=== PATIENT | male | born 1975 | race Caucasian/White ===

== ENCOUNTER 2016-10-12 10:38 | Inpatient (IN) ==
[2016-10-12] MEDS ORDERED: ASPIRIN PO STA (11:05)
[2016-10-12 11:46] LABS: ALLEN TEST YES; BE 13.4 mmoll (-3.0-3.0); BLOOD TYPE ARTERIAL; DRAW SITE L RADIAL; METHB 0.8 % (0.0-1.5); O2(CT) 12.7 mL/dL (15.0-23.0); PO2(98.6) 63 mmHg (60-100); SAMPLE BLOOD; SAO2 98.4 % (95.0-100.0); THB 9.6 g/dL (11.5-17.4); pH(98.6) 7.44 (7.35-7.45)
[2016-10-12 11:49] LABS: MODALITY CANNULA; PCO2(98.6) 58 mmHg (35-45)
[2016-10-12] MEDS ORDERED: DUONEB (A & A) INH ONE (12:02)
--- NOTE | 2016-10-12 12:09 | PROVIDER DOCUMENTATION ---
This chart was entered by Heather Benavides Scribe, acting as scribe for Shaye Nunez PA. HPI-Respiratory General <Omi Rodrigues - Last Filed: 10/14/16 18:44> - General Source: patient - History of Present Illness-Resp Quality of Pain: reports: tightness Severity in ED: reports: mild Onset/Duration: reports: 2 days ago Timing: reports: still present, intermittent Exposure: reports: unknown cause Cough Quality/Degree: reports: no cough Current Respiratory Medication Therapy: Initiated see nurses note Modifying Factors: improves with: nothing Associated Symptoms: reports: shortness of breath, sweaty. denies: chest pain/ soreness, cough, dizziness, earache, facial pain, fever/chills, flu-like symptoms, headache, heart racing, hurts to breathe, hyperventilating, lightheadedness, muscle/bodyaches, nasal congestion, nasal drainage, sinus pain , short of breath, sore throat, wheezing Similar Symptoms Previously?: Yes Recently seen or treated by another doctor?: No <Shaye Nunez - Last Filed: 10/14/16 19:30> - General Chief Complaint: Shortness of Breath Stated Complaint: sob Time Seen by Provider: 10/12/16 11:03 Allergies/Adverse Reactions: Patient Allergies Allergy/AdvReac Type Severity Reaction Status Date / Time fluconazole [From Diflucan] Allergy Severe ANAPHYLAXIS Verified 10/12/16 11:06 iodine Allergy Intermediate HIVES Verified 10/12/16 11:06 Penicillins Allergy Intermediate itchy Verified 10/12/16 11:06 Sulfa (Sulfonamide Allergy Unknown Unknown Verified 10/12/16 11:06 Antibiotics) ondansetron HCl * Allergy Unknown Verified 10/12/16 11:06 [From Zofran (as hydrochloride)] latex AdvReac Intermediate RASH Verified 10/12/16 11:06 Home Medications: Home Medication List Medication Instructions Recorded Confirmed Last Taken Type Alprazolam [Xanax] 1 mg PO BID 03/19/13 10/12/16 10/12/16 History Citalopram [Celexa] 40 mg PO QAM 03/19/13 10/12/16 10/12/16 History Oxycodone I.r. [Oxy Ir] 30 mg PO 4XDAY #0 tablet 04/04/15 10/12/16 10/12/16 Rx Furosemide [Lasix] 20 mg PO QAM 07/12/15 10/12/16 10/12/16 History Omeprazole 40 mg PO QAM 07/12/15 10/12/16 10/12/16 History - History of Present Illness-Resp Nature of Presenting Problem: Pt is 41 y/o M presents to the ED via EMS with SOB. Pt states SOB has been present for 2 to 3 days. Pt states wearing 2L of home O2. Pt denies cough. Pt states hx of Lupus, PE and GI bleeds. EMS states finding PT with 7L of home O2 on 06/24/15 was admitted for a loculated effusion and chest tube was placed on 07/13/16 admitted for loculated hydropneumonia, had chest tube subsequently placed again on that right side. Found to have an empyema of strep gordonii. In the discharge summary there was a recommended decortication throrocosopy byt CT surgeon on outpatient basis. Patient had this completed 1 year ago at [facility] (Heather Benavides) Pt is 41 y/o M presents to the ED via EMS with SOB. Pt states SOB has been present for 2 to 3 days. Pt states wearing 2L of home O2. Pt denies cough. Pt states hx of Lupus, PE and GI bleeds. EMS states finding PT with 7L of home O2 on 06/24/15 was admitted for a loculated effusion and chest tube was placed on 07/13/16 admitted for loculated hydropneumonia, had chest tube subsequently placed again on that right side. Found to have an empyema of strep gordonii. In the discharge summary there was a recommended decortication throrocosopy byt CT surgeon on outpatient basis. Patient had this completed 1 year ago at [facility] ( Shaye Nunez) Review of Systems - Adult - REVIEW OF SYSTEMS - ADULT Constitutional: reports: no symptoms reported Eyes: reports: no symptoms reported Ears, Nose, Mouth & Throat: reports: no symptoms reported Cardiovascular: reports: no symptoms reported Respiratory: reports: no symptoms reported Gastrointestinal: reports: no symptoms reported Genitourinary: reports: no symptoms reported Musculoskeletal: reports: no symptoms reported Integumentary: reports: no symptoms reported Neurological: reports: no symptoms reported Psychiatric: reports: no symptoms reported Endocrine: reports: no symptoms reported Hematologic/Lymphatic: reports: no symptoms reported Allergic/Immunologic: reports: no symptoms reported All Other Systems: Reviewed and Negative <Omi Rodrigues - Last Filed: 10/14/16 18:44> - REVIEW OF SYSTEMS - ADULT Constitutional: reports: no symptoms reported Eyes: reports: no symptoms reported Ears, Nose, Mouth & Throat: reports: no symptoms reported Cardiovascular: reports: no symptoms reported Respiratory: reports: shortness of breath. denies: cough, wheezing Gastrointestinal: reports: no symptoms reported Genitourinary: reports: no symptoms reported Musculoskeletal: reports: no symptoms reported Integumentary: reports: no symptoms reported Neurological: reports: no symptoms reported Psychiatric: reports: no symptoms reported Endocrine: reports: no symptoms reported Hematologic/Lymphatic: reports: no symptoms reported Allergic/Immunologic: reports: no symptoms reported All Other Systems: Reviewed and Negative <Shaye Nunez - Last Filed: 10/14/16 19:30> Past History - Adult - PAST MEDICAL HISTORY-ADULT Review of Records: reports: Nursing Assessment Review, Medications Reviewed <Omi Rodrigues - Last Filed: 10/14/16 18:44> - PAST MEDICAL HISTORY-ADULT Review of Records: reports: Old Records Reviewed, Nursing Assessment Review, Medications Reviewed Major Childhood Illnesses: reports: denies history Cardiovascular: reports: CHF Respiratory: reports: COPD Gastrointestinal: reports: denies history Obstetrical/Gynecological: reports: denies history Genitourinary: reports: denies history Musculoskeletal: reports: denies history Neurological: reports: denies history Psychiatric: reports: anxiety, depression Endocrine/Immune: reports: lupus Other Conditions: reports: denies history - PRIOR SURGERIES/PROCEDURES Surgical/Procedure History: reports: appendectomy, hernia repair - IMMUNIZATION STATUS Childhood Immunizations: See Nurse Assessment Flu Vaccine: See Nurse Assessment - FAMILY HISTORY Family History: reviewed, not pertinent - SOCIAL HISTORY Smoking: denies Substance Use: denies Living Situation: family <Shaye Nunez - Last Filed: 10/14/16 19:30> Physical Exam-General - PHYSICAL EXAM-ADULT Initial Vital Signs Reviewed: Yes - CONSTITUTIONAL General Appearance: appears well, alert, mild distress - EYES Eyes: PERRL/EOMI, pink conjunctivae - HEAD, EARS, NOSE, MOUTH & THROAT HENMT: normocephalic/atraumatic, moist mucous membranes, normal ENT inspection - NECK Neck: supple, normal inspection - RESPIRATORY Respiratory: chest non-tender, lungs clear, normal breath sounds, respiratory distress (mild) - CARDIOVASCULAR Cardiovascular: normal peripheral pulses, regular rate, rhythm - GASTROINTESTINAL (ABDOMEN) Abdominal Exam: normal bowel sounds, non tender, soft - LYMPHATIC Lymphatic: no adenopathy - MUSCULOSKELETAL Back Exam: normal inspection, no CVA tenderness, no vertebral tenderness Extremity: normal range of motion, non-tender - SKIN Integumentary: normal color, normal turgor, warm/dry - NEUROLOGIC Neurologic: grossly normal - PSYCHIATRIC Psych/Mental Status: normal mood/affect, oriented x 3 <Shaye Nunez - Last Filed: 10/14/16 19:30> Progress - PLAN OF CARE/RESULTS Result Diagrams: 10/14/16 04:20 10/14/16 04:20 <Omi Rodrigues - Last Filed: 10/14/16 18:44> - PLAN OF CARE/RESULTS Result Diagrams: 10/14/16 04:20 10/14/16 04:20 - REASSESSMENT Reassessment #1 Time Reassessed: 13:42 (sob has improved. Dr. Rodrigues to bedside. agrees with treatment plan) Status: improving - XRAY 1 XRAY: Bilateral XRAY Study: Chest Impression: Abnormal (mild cardiomegaly with tiny effusions per Dr. Jordan) - CONSULTS/PCP/HOSPITALIST Notification #1 *Consult/PCP/Hospitalist*: Hospitalist Time Discussed: 15:28 Reason/Comments: Dr. Rodrigues consults with the hospitalist about admit of PT - CHANGE OF SHIFT REPORT (ED Provider) Report Given and Care Transferred to:: Dr. Rodrigues Time of Transfer: 14:23 Items Pending: CT/MRI Results <Shaye Nunez - Last Filed: 10/14/16 19:30> - PLAN OF CARE/RESULTS Progress/Plan/Lab Results: Orders Category Date Time Status Admit Patient To Inpatient Status Routine AdmDCTranf 10/12/16 18:43 Ordered Cardiac Monitoring DIRECTED Care 10/12/16 11:05 Completed Intake and Output As Ordered Q 8-HR ASSESS Care 10/12/16 15:48 Active Nursing- MD Consult Request ROUTINE Care 10/12/16 18:38 Completed Oxygen Therapy- ED Nursing DIRECTED Care 10/12/16 11:05 Completed Saline Loc NOW Care 10/12/16 11:05 Completed Vital Signs Order Q 4-HR ASSESS Care 10/12/16 15:48 Completed Vital Signs Order Q 4-HR ASSESS Care 10/12/16 18:44 Completed MD [Physician/Provider Consults] Routine Cons 10/12/16 18:37 Ordered Physician/Provider Consults Stat Cons 10/12/16 18:08 Ordered ANGIOGRAM/PULMONARY ARTERIES [CT] Routine Exams 10/12/16 18:40 Completed CHEST-2 VIEWS [RAD] Stat Exams 10/12/16 11:05 Completed CHEST-PORTABLE [RAD] Routine Exams 10/13/16 06:00 Completed lateral [LAT. DECUBITUS VIEW-LEFT] [RAD] Stat Exams 10/12/16 13:10 Completed ABG [RESP] Routine Lab 10/12/16 11:35 Completed ABG [RESP] Routine Lab 10/12/16 18:16 Completed ABG [RESP] Routine Lab 10/13/16 04:25 Completed BASIC METABOLIC PANEL [CHEM] DAILY Lab 10/13/16 04:00 Completed BASIC METABOLIC PANEL [CHEM] DAILY Lab 10/14/16 04:20 Completed BASIC METABOLIC PANEL [CHEM] DAILY Lab 10/15/16 06:00 Ordered BLOOD CULTURE [BLDCUL] Routine Lab 10/12/16 21:43 Results CBC WITH DIFF [HEME] DAILY Lab 10/13/16 04:00 Completed CBC WITH DIFF [HEME] DAILY Lab 10/14/16 04:20 Completed CBC WITH ELECTRONIC DIFF [HEME] Stat Lab 10/12/16 12:06 Completed CK PROFILE [SP CHEM] Stat Lab 10/12/16 12:06 Completed COMPREHENSIVE METABOLIC PANEL [CHEM] Stat Lab 10/12/16 12:06 Completed D-DIMER [CHEM] Stat Lab 10/12/16 12:06 Completed FERRITIN Routine Lab 10/12/16 15:00 Completed FREE T4 Routine Lab 10/12/16 15:00 Completed INFLUENZA SCREEN A/B Stat Lab 10/12/16 18:41 Completed MAGNESIUM [CHEM] Stat Lab 10/12/16 12:06 Completed PRO B-NATRIURETIC PEPTIDE Stat Lab 10/12/16 12:06 Completed PROTIME WITH INR [COAG] Stat Lab 10/12/16 12:06 Completed PTT [COAG] Stat Lab 10/12/16 12:06 Completed RENAL PROFILE [CHEM] Stat Lab 10/12/16 12:06 Completed SPUTUM CULTURE WITH GRAM STAIN [RM] Routine Lab 10/12/16 18:49 Ordered TROPONIN T Stat Lab 10/12/16 12:06 Completed TSH Routine Lab 10/12/16 15:00 Completed UA NIMS W/REFLEX CULT [URINALYSIS] Stat Lab 10/12/16 12:50 Completed UIBC W TOTAL IRON [CHEM] Routine Lab 10/12/16 15:00 Completed VITAMIN B12 Routine Lab 10/12/16 12:06 Completed VITAMIN D 25 HYDROXY Routine Lab 10/12/16 12:06 Completed 0.9% Sodium Chloride Inj [Ns] 500 ml Med 10/12/16 16:18 Discontinued .ROUTE As Directed Albuterol 2.5MG/Ipratrop 0.5MG [Duoneb (A & A)] Med 10/12/16 12:02 Discontinued 3 ml INH NOW ONE Albuterol 2.5MG/Ipratrop 0.5MG [Duoneb (A & A)] Med 10/12/16 19:30 Active 3 ml INH RTQ4H Aspirin Med 10/12/16 11:05 Discontinued 325 mg PO STAT STA Enoxaparin 1 mg/kg [Lovenox 1 mg/kg] Med 10/12/16 18:17 Discontinued 1 each SUBQ NOW ONE Enoxaparin [Lovenox] Med 10/12/16 18:30 Discontinued 110 mg SUBQ NOW ONE Enoxaparin [Lovenox] Med 10/13/16 06:30 Discontinued 110 mg SUBQ Q12H Ergocalciferol (Vitamin D2) [Vitamin D] Med 10/13/16 09:00 Active 50,000 unit PO Q7D Hydrocodone/APAP 5 mg/325 mg [[place]-5] Med 10/12/16 14:13 Discontinued 1 each PO NOW ONE Hydromorphone [Dilaudid] Med 10/12/16 18:43 Discontinued 1 mg IM Q3H PRN PRN Levofloxacin [Levaquin] Med 10/12/16 18:49 Discontinued 750 mg PO NOW ONE Meperidine [Demerol] Med 10/12/16 18:07 Discontinued 25 mg IM NOW ONE Methylprednisolone Sod Succ [Solu-Medrol] Med 10/12/16 18:45 Active 60 mg IV Q8H Omeprazole [Prilosec] Med 10/13/16 07:00 Active 40 mg PO DAILY@0700 Aerosol Treatments Routine Oth 10/12/16 12:02 Completed Aerosol Treatments Routine Oth 10/12/16 15:40 Completed Aerosol Treatments Stat Oth 10/12/16 12:02 Completed Aerosol Treatments Stat Oth 10/12/16 15:40 Completed BIPAP Routine Oth 10/12/16 18:37 Active BIPAP Stat Oth 10/12/16 18:38 Active Pulse Oximetry Routine Oth 10/12/16 15:44 Completed EKG [EKG] Stat Ther 10/12/16 11:05 Completed Limited Echocardiogram Routine Ther 10/12/16 08:00 Completed Venous U/S Bilateral Legs Routine Ther 10/12/16 18:38 Draft Transfer/Admit Order [TRANSFER] Routine Transfer 10/12/16 18:40 Completed Discussed patient with Dr. Valle after ABGs. States we do not need BIPAP at this time (Heather Benavides) Discussed patient with Dr. Valle after ABGs. States we do not need BIPAP at this time (Shaye Nunez) - CHANGE OF SHIFT REPORT (ED Provider) Comment: stable, r/o PE (Heather Benavides) stable, r/o PE (Shaye Nunez) Departure - Departure Time of Disposition Decision: 22:00 Certified Medical Emergency: Emergent - Critical Care Note This patient required my direct & personal management of CC.: No <Omi Rodrigues - Last Filed: 10/14/16 18:44> - Departure Time of Disposition Decision: 22:00 Certified Medical Emergency: Emergent - Critical Care Note This patient required my direct & personal management of CC.: No <Shaye Nunez - Last Filed: 10/14/16 19:30> - Departure DIAGNOSIS: Respiratory failure with hypoxia Qualifiers: Chronicity: acute on chronic Qualified Code(s): J96.21 - Acute and chronic respiratory failure with hypoxia Disposition: ADMITTED INPATIENT 09 Condition: Stable Attestation - Physician/ PATY Attestation Patient care was provided by Advanced Practice Provider:: Yes Advanced Practice Provider:: Shaye Nunez Advanced Practice Provider documentation review:: The Mid-level provider documentation, treatment plan and medical decision making was reviewed by the physician who agrees with all treatment and medical decision making by the MLP. The physician spent face to face time with patient:: Yes Advanced Practice Provider documentation review:: The physician spent face to face time with this patient and agrees with all MLP documentation, treatment, and medical decision making by the MLP. See provider notes for further information. <Shaye Nunez - Last Filed: 10/14/16 19:30> This chart was documented by the indicated scribe, (Heather Benavides Scribe) and accurately reflects the services I performed and decisions made by vt, Shaye Nunez, PA, as attested by the provider's signature.
[2016-10-12 12:24] LABS: MANUAL DIFF NEEDED? NO
[2016-10-12 12:33] LABS: BASO% 0.2 % (0.0-0.8); EOS# 0.09 X1000 (0.0-0.7); EOS% 1.7 % (0.0-10.0); HEMATOCRIT 34.4 % (42.0-52.0); HEMOGLOBIN 10.1 g/dL (14.0-18.0); IMM GRAN# 0.02 X1000 (0.0-0.04); IMM GRAN% 0.4 % (0.0-0.5); LYMPH# 0.55 X1000 (1.2-3.4); LYMPH% 10.4 % (20.5-51.1); MCH 22.7 PG (27-31); MCHC 29.4 g/dL (33-37); MCV 77.5 FL (81-99); MONO# 0.39 X1000 (0.11-0.59); MONO% 7.3 % (1.7-9.3); MPV 8.6 FL (7.4-10.4); PLT 84 X1000 (130-400); RBC 4.44 XMIL (4.7-6.1)
[2016-10-12 12:39] LABS: INR 1.02; PROTIME 10.7 Seconds (9.2-11.7); PTT 25.6 Seconds (22.0-36.0)
[2016-10-12] MEDS ORDERED: LASIX IV ONE ×2 (12:45→20:45)
[2016-10-12 13:03] LABS: URINE CULTURE NEEDED? NO; URINE MICRO REVIEW NEEDED? NO; URINE SOURCE CLEAN CATCH
[2016-10-12 13:07] LABS: BILIRUBIN URINE NEGATIVE (NEGATIVE); BLOOD URINE NEGATIVE (NEGATIVE); COLOR STRAW; GLUCOSE URINE NEGATIVE (NEGATIVE); LEUKOCYTES URINE NEGATIVE (NEGATIVE); NITRITE URINE NEGATIVE (NEGATIVE); PROTEIN URINE NEGATIVE (NEGATIVE); SP GRAVITY URINE 1.005; TURBIDITY URINE CLEAR (CLEAR); UROBILINOGEN URINE NORMAL (NORMAL)
[2016-10-12 13:08] LABS: UR EPITHELIAL CELLS <10 /HPF (<10); URINE BACTERIA NEGATIVE /HPF; URINE RBC <10 /HPF (<10); URINE WBC <10 /HPF (<10)
[2016-10-12 13:13] LABS: AGAP 16; ALBUMIN 3.5 g/dL (3.5-5.0); ALKALINE PHOSPHATASE 124 U/L (32-122); BUN 10 mg/dL (8-22); CHLORIDE 92 mmol/L (98-107); CK PROFILE 35 U/L (24-204); COSMO 273; GOT 15 U/L (10-34); GPT 10 U/L (10-44); MAGNESIUM 2.2 mg/dL (1.5-2.7); POTASSIUM 4.7 mmol/L (3.5-5.1); SODIUM 137 mmol/L (136-145); TCO2 29 mmol/L (25-35); TOTAL BILIRUBIN 0.38 mg/dL (0.20-1.00); TOTAL PROTEIN 8.1 g/dL (6.3-8.3)
[2016-10-12] MEDS ORDERED: NORCO-5 PO ONE (14:13)
--- NOTE | 2016-10-12 15:15 | Diag Imaging Result Document ---
PROCEDURE NAME: CHEST-2 VIEWS - 10/12/2016 FRONTAL AND LATERAL CHEST, TWO VIEWS: COMPARISON: 07/26/2015. FINDINGS: Poor inspiratory effort. The right hemidiaphragm is elevated. The heart remains mildly enlarged. The vessels are not distended. There is atelectasis in the right base. Tiny pleural effusions blunt the posterior gutters. IMPRESSION: Poor inspiratory effort with mild cardiomegaly and tiny pleural effusions.
[2016-10-12] MEDS ORDERED: NS 500 ML ONE (16:18)
[2016-10-12 16:26] LABS: IRON SATURATION 4 %; TIBC 419 ug/dL; TOTAL IRON 17 ug/dL (53-167); UNBOUND IRON 402 ug/dL (112-346)
[2016-10-12 16:35] LABS: VITAMIN D 25 HYDROXY 17.4 NG/DL
--- NOTE | 2016-10-12 16:49 | Diag Imaging Result Document ---
PROCEDURE NAME: LAT. DECUBITUS VIEW-LEFT - 10/12/2016 LEFT LATERAL DECUBITUS CHEST: FINDINGS: There is dependent layering of a small amount of free pleural fluid on the left. IMPRESSION: Small left pleural effusion.
[2016-10-12 17:53] LABS: FREE T4 0.98 ng/dL (0.93-1.70)
[2016-10-12] MEDS ORDERED: DEMEROL IM ONE (18:07)
[2016-10-12] MEDS ORDERED: LOVENOX 1 MG/KG SUBQ ONE (18:17)
[2016-10-12 18:23] LABS: ALLEN TEST YES; BE 11.4 mmoll (-3.0-3.0); BLOOD TYPE ARTERIAL; DRAW SITE R RADIAL; METHB 1.5 % (0.0-1.5); PO2(98.6) 72 mmHg (60-100); SAMPLE BLOOD; SAO2 97.5 % (95.0-100.0); THB 10.6 g/dL (11.5-17.4); pH(98.6) 7.41 (7.35-7.45)
[2016-10-12 18:26] LABS: MODALITY CANNULA; PCO2(98.6) 60 mmHg (35-45)
[2016-10-12] MEDS ORDERED: LOVENOX SUBQ ONE (18:30)
[2016-10-12] MEDS ORDERED: DILAUDID IM PRN (18:43)
[2016-10-12] MEDS ORDERED: LEVAQUIN PO ONE (18:49)
[2016-10-12] MEDS: DUONEB (A & A) INH SCH ×2 (19:39→22:55)
[2016-10-12 19:46] LABS: AGAP 21; ALBUMIN 3.9 g/dL (3.5-5.0); BUN 10 mg/dL (8-22); CHLORIDE 89 mmol/L (98-107); COSMO 271; POTASSIUM 4.8 mmol/L (3.5-5.1); SODIUM 136 mmol/L (136-145); TCO2 26 mmol/L (25-35)
[2016-10-12] MEDS: SOLU-MEDROL IV SCH (20:37)
[2016-10-12] MEDS ORDERED: BENADRYL IV ONE (20:51)
[2016-10-12] MEDS ORDERED: TYLENOL PO ONE (20:52)
[2016-10-12] MEDS: MERREM 1 GM in NS 50 ML IV SCH (21:25)
--- NOTE | 2016-10-12 22:40 | HISTORY AND PHYSICAL ---
PRIMARY CARE PHYSICIAN: None. CHIEF COMPLAINT: Increasing shortness of breath over the last 3 days. HISTORY OF PRESENT ILLNESS: Mr. Lee is a 41-year-old male with a complicated past medical and surgical history, including mesenteric venous thrombosis, lupus, chronic pain syndrome, ITP, protein S deficiency and a history of right upper and right lower extremity DVT who presented to the ER via EMS in respiratory distress. The patient reports that over the last 3 days he has been having increasing shortness of breath and pleuritic chest pain. In the past, the patient has been treated with Coumadin due to his multiple episodes of thrombosis. However, he was taken off of the Coumadin due to a history of GI bleed. As recently as last year, he was told to start Eliquis. However, the patient did not get the prescription filled because he was afraid of having another GI bleed. One year ago, the patient had a decortication of a right empyema done at [facility]. The patient reports that he is normally on 2 L of supplemental oxygen at home. He also has obstructive sleep apnea. In the ER, the patient was noted to be complaining of 10/10 pleuritic chest pain and was unable to maintain oxygen saturations on nasal cannula. So the patient was placed on BiPAP. The patient is a very difficulty stick for IV access, so a General Surgery consultation was placed for central line placement. An attempt to place a PICC line was tried; however, it was unsuccessful. The patient's D-dimer was noted to be elevated at 2.35. Due to the patient's extensive history of thrombosis, pulmonary embolism was high on the differential list. As a result, the patient was given a dose of full-dose Lovenox while in the ER, and a CT angiogram of the pulmonary arteries was ordered as well as bilateral lower extremity venous Doppler. The patient will be admitted to the medical ICU for further treatment and evaluation. PAST MEDICAL HISTORY: 1. Mesenteric venous thrombosis. 2. GERD. 3. Trevino's esophagus. 4. Lupus. 5. Depression. 6. Gastritis. 7. History of GI bleed. 8. Chronic pain syndrome. 9. Anxiety disorder. 10. Gout. 11. Metabolic syndrome. 12. Morbid obesity. 13. ITP. 14. History of empyema status post decortication 1 year ago at [facility]. 15. Empyema 16. Obstructive sleep apnea. 17. History of right lower extremity DVT. 18. Ischemic colitis. PAST SURGICAL HISTORY: 1. Decortication of a right-sided empyema at [facility] 1 year ago. 2. Exploratory laparotomy with lysis of adhesions performed in 2012. 3. Bowel resection. 4. Chest tube thoracostomy in June 2015. 5. EGD. FAMILY HISTORY: Positive for coronary artery disease, diabetes, and hypertension. SOCIAL HISTORY: The patient lives at home. He denies any tobacco, alcohol or illicit drug use. ALLERGIES: 1. Fluconazole. 2. Iodine. 3. Penicillin. 4. Sulfa drugs. 5. Latex. 6. Zofran. HOME MEDICATIONS: 1. Oxycodone IR 30 mg p.o. 4 times a day. 2. Omeprazole 40 mg p.o. every morning. 3. Lasix 20 mg p.o. every morning. 4. Celexa 40 mg p.o. every morning. 5. Xanax 1 mg p.o. twice a day. REVIEW OF SYSTEMS: All other review of systems are negative. Please refer to the history of present illness for pertinent positives and negatives. PHYSICAL EXAMINATION: VITAL SIGNS: Temperature 98.4 degrees, blood pressure 155/91, heart rate 88, respirations 18, O2 saturations 99% on BiPAP. GENERAL: This is a morbidly obese male, in mild distress. HEAD: Normocephalic, atraumatic. NECK: Supple. No JVD. No lymphadenopathy. No carotid bruits. EYES: Conjunctivae clear, EOMI, PERRLA. HEART: S1, S2 normal. Regular rate and rhythm. No murmurs, rubs, or gallops. LUNGS: Mild expiratory wheezes bilaterally. No crackles. No rales. Equal air entry bilaterally. ABDOMEN: Positive bowel sounds. Soft, obese, nontender, nondistended. EXTREMITIES: No edema. No cyanosis. No calf tenderness. NEUROLOGIC: The patient is alert and oriented x3. No focal neurologic deficits noted. LABORATORY: White blood cell count 5.3, hemoglobin 10, hematocrit 34, platelets 84,000. D-dimer 2.3. INR 1. ABG: PH of 7.41, pCO2 60, PO2 72, bicarb 33. O2 saturation 97%. Sodium 136, potassium 4.8, chloride 89, CO2 26, BUN 10, creatinine 1.2, glucose 103. Iron 17, TIBC 419. UA negative. Vitamin D level 17.4. TSH 0.9, free T4 0.9, albumin 3.9. ProBNP 440. IMAGING: Portable chest x-ray reveals mild cardiomegaly and tiny pleural effusions. ASSESSMENT AND PLAN: 1. Acute on chronic hypoxemic respiratory failure. Given the patient's history of multiple episodes of thrombosis, pulmonary embolism is high on the differential. We will go ahead and treat the patient with full dose Lovenox and order a CT angiogram of the pulmonary arteries as well as a venous Doppler of the lower extremities. We will also continue with BiPAP support and consult Pulmonary. Bronchodilator therapy and antibiotics have been initiated. 2. Left pleural effusion. Will monitor closely. May require a thoracentesis. 3. History of idiopathic thrombocytopenia. The patient's platelet count is 84, 000 today. His platelets have been as low as 68,000. Will consult for further recommendations. 4. Situational depression. Continue on Celexa. 5. Obstructive sleep apnea. Aware. 6. Gastroesophageal reflux disease. We will start the patient on IV Protonix. 7. Morbid obesity. Aware 8. Chronic pain syndrome. prn pain medications have been started. 9. The plan of care was discussed with the patient and his mother at the bedside. cc: Zenaida Davey MD MTDD
--- NOTE | 2016-10-12 22:44 | OPERATIVE NOTE ---
PROCEDURE DATE: 10/12/2016 PROCEDURE PERFORMED: Left internal jugular vein central venous line placement, with ultrasound guidance. SURGEON: Dr. Alexander. PREOPERATIVE DIAGNOSIS: Acute respiratory failure. POSTOPERATIVE DIAGNOSIS: Acute respiratory failure. DESCRIPTION OF PROCEDURE: The patient was placed in Trendelenburg position. The left upper anterior chest and neck were prepped and draped in a sterile fashion. We used an ultrasound to identify the internal jugular vein. It was easily compressible. We anesthetized the skin, made a small stab incision, accessed the vein under ultrasound guidance. We then passed the guidewire without difficulty. We dilated the tract and passed the triple-lumen catheter to the extent that it would go. Blood came back in each lumen spontaneously. We then flushed each lumen with saline, secured the flange to the skin with silk contained within the [place]. Biostep patch was placed at the exit site, and a sterile OpSite was applied. A chest x-ray was ordered. He tolerated it well. cc: Omi Alexander MD
[2016-10-12] MEDS: DILAUDID IV PRN (22:58)
[2016-10-13] MEDS: DILAUDID IV PRN ×6 (03:25→23:29)
[2016-10-13] MEDS: DUONEB (A & A) INH SCH ×6 (03:25→22:57)
[2016-10-13] MEDS: SOLU-MEDROL IV SCH ×3 (03:30→17:51)
[2016-10-13] MEDS: MERREM 1 GM in NS 50 ML IV SCH ×3 (03:34→19:56)
[2016-10-13 04:41] LABS: ALLEN TEST YES; BE 10.3 mmoll (-3.0-3.0); BLOOD TYPE ARTERIAL; DRAW SITE R RADIAL; METHB 1.5 % (0.0-1.5); O2(CT) 14.8 mL/dL (15.0-23.0); PCO2(98.6) 32 mmHg (35-45); PO2(98.6) 185 mmHg (60-100); SAMPLE BLOOD; SAO2 100.1 % (95.0-100.0); THB 10.6 g/dL (11.5-17.4)
[2016-10-13 04:42] LABS: MODALITY BI PAP; pH(98.6) 7.61 (7.35-7.45)
--- NOTE | 2016-10-13 05:31 | EKG Report ---
Test Performed on : 10/12/2016 11:14:54 PM Test Reason : Chest Pain Blood Pressure : / mmHG Vent. Rate : 084 BPM Atrial Rate : 084 BPM P-R Int : 142 ms QRS Dur : 082 ms QT Int : 384 ms P-R-T Axes : 022 037 026 degrees QTc Int : 453 ms Normal sinus rhythm. Normal ECG When compared with ECG of 12-OCT-2016 23:14, (Unconfirmed) No significant change was found Confirmed by Romeo Hutchinson MD ([id number]) on 10/13/2016 7:33:14 AM
[2016-10-13 05:49] LABS: HEMOGLOBIN 10.3 g/dL (14.0-18.0); LYMPH# 0.32 X1000 (1.2-3.4); MANUAL DIFF NEEDED? YES; MCH 23.2 PG (27-31); MCHC 30.3 g/dL (33-37); MCV 76.6 FL (81-99); MONO% 1.6 % (1.7-9.3); NEUT% 93.4 % (42.2-75.2); PLT 79 X1000 (130-400); RBC 4.44 XMIL (4.7-6.1)
[2016-10-13 05:57] LABS: AGAP 15; BUN 13 mg/dL (8-22); CALCIUM 8.8 mg/dL (8.8-10.2); CHLORIDE 94 mmol/L (98-107); COSMO 281; IRON SATURATION 5 %; POTASSIUM 4.1 mmol/L (3.5-5.1); SODIUM 139 mmol/L (136-145); TCO2 30 mmol/L (25-35); TIBC 354 ug/dL; TOTAL IRON 17 ug/dL (53-167); UNBOUND IRON 337 ug/dL (112-346)
[2016-10-13] MEDS: LOVENOX SUBQ SCH ×2 (06:03→17:51)
[2016-10-13] MEDS: PRILOSEC PO SCH (06:04)
[2016-10-13 06:07] LABS: FERRITIN 50 ng/mL (30-400)
[2016-10-13 06:38] LABS: LYMPHS 6 % (21-51); MONO 2 % (1-9)
--- NOTE | 2016-10-13 07:30 | Diag Imaging Result Document ---
PROCEDURE NAME: CHEST-PORTABLE - 10/13/2016 PORTABLE CHEST: COMPARISON: Compared to 10/12/2016. FINDINGS: Poor inspiratory effort. No change in the left jugular line. The heart remains prominent. Vascular distention is more pronounced on the current exam. I believe there is a small left effusion. There could be underlying infiltrate in the left base as well. IMPRESSION: Worsening pulmonary edema.
[2016-10-13] MEDS ORDERED: LASIX IV ONE (07:37)
--- NOTE | 2016-10-13 08:12 | Diag Imaging Result Document ---
PROCEDURE NAME: CHEST-PORTABLE - 10/12/2016 PORTABLE CHEST: COMPARISON: Compared to 10/12/2016. FINDINGS: Poor inspiratory effort. Interval placement of a left jugular line. The tip overlies the distal superior vena cava. No pneumothorax. Heart remains mildly prominent. I believe there are small effusions. IMPRESSION: No postprocedural pneumothorax following placement of a left jugular line.
--- NOTE | 2016-10-13 08:17 | Diag Imaging Result Document ---
PROCEDURE NAME: ANGIOGRAM/PULMONARY ARTERIES - 10/12/2016 CT ANGIOGRAM OF PULMONARY ARTERIES WITH CONTRAST: Exam performed with intravenous contrast. A dose-reduction protocol was used. Axial and coronal images are obtained. COMPARISON: Compared with 06/24/2015. FINDINGS: There are no filling defects identified in the pulmonary arteries. Inspiration is somewhat shallow. There is a moderate left pleural effusion. There is associated compressive atelectasis at the posterior left lower lobe and posterior left upper lobe. There is atelectasis at the right base associated with elevation of the right hemidiaphragm. There is no pneumothorax identified. The trachea is narrowed in the AP dimension similar to the previous exam. There is no specific etiology for this apparent. There are some mildly enlarged mediastinal lymph nodes and right supraclavicular lymph nodes which appear grossly stable. There is no indication of aortic dissection. Included sections of upper abdomen show splenomegaly similar to the previous exam, although the entire spleen is not included on the exam. There is possibly mild fatty infiltration of the liver. IMPRESSION: 1. No evidence of pulmonary embolism. 2. Moderate left pleural effusion with associated compressive atelectasis of posterior left lower left upper lobes. 3. Atelectasis at right base associated with elevation of right hemidiaphragm. 4. Narrowing of trachea in the AP dimension similar to the previous exam. Mild mediastinal and supraclavicular adenopathy similar to the previous exam. 5. Splenomegaly. A [facility] physician provided preliminary results at 11:08 p.m. on 10/12/2016.
--- NOTE | 2016-10-13 08:55 | ECHO REPORT ---
ORDER DATE: 10/12/2016 FINDINGS: 1. Technically suboptimal study. Very poor acoustic window. Measurements could not be accurately obtained. 2. Aortic valve leaflets not well visualized. Pulmonic valve not well visualized. 3. Mitral valve was normal. 4. Normal left ventricular cavity size. Endocardium not well visualized in all views. Preserved left ventricular systolic function. Estimated ejection fraction of 60%. 5. Peak velocity across the aortic valve less than 2 m/sec by Doppler studies. There is no aortic stenosis or regurgitation. Cannot comment on Dopplers across the other valves because of technically suboptimal study. There is no pericardial effusion or obvious intracardiac mass or thrombus seen. cc: MD Zenaida Clements MD
[2016-10-13] MEDS ORDERED: VITAMIN D PO SCH (09:00)
[2016-10-13] MEDS: LASIX IV SCH ×2 (10:17→17:50)
--- NOTE | 2016-10-13 11:46 | CONSULTATION ---
DATE OF CONSULTATION: 10/13/2016 REQUESTING PHYSICIAN: Dr. Davey. REASON FOR CONSULTATION: Respiratory failure. HISTORY OF PRESENT ILLNESS: Mr. Lee is a 41-year-old, white male with a history of ITP, mesenteric venous thrombosis, with a prior admission to this hospital in June of 2015 with an empyema and subsequent decortication, who was brought to the emergency room with a 3-4 day history of fevers with subsequent onset of pleuritic pain. The patient presented to the emergency room, had small to moderate left-sided pleural effusion. No evidence of pulmonary emboli was identified. The patient's course is complicated and he carries multiple non-substantiated diagnoses. The patient does have chronic pain syndrome and he reports prior back fractures without back surgery. He does have known ITP with subsequent clotting abnormality and has been followed by Dr. Ennis and Dr. Ann in the past. He carries a diagnosis of protein S deficiency which has been repeated in the chart but has had normal protein C and S levels in this hospital. The patient also carries a diagnosis of antiphospholipid syndrome and had 1 positive test for this disease process but the 2 most recent were negative. The patient also carries a diagnosis of lupus but no formal evaluation is available for review. Patient's ALEE has been negative. The patient reports that he does not have a regular physician. He was last seen by a physician in [place] (Annita ). He reports he received pain medicine from this physician and he continues to use that prescription. PAST MEDICAL HISTORY/PROBLEM LIST: 1. ITP. 2. History of mesenteric vein thrombosis requiring surgery. Postoperatively, he had a clot in his arm and leg. 3. History of GI bleeding. 4. Chronic pain syndrome, on OxyContin. 5. Depression/anxiety disorder. 6. Questionable diagnosis of lupus. 7. Morbid obesity. 8. Status post empyema with decortication. 9. Questionable diagnosis of sleep apnea. This has been repeated in the chart several times but he denies formal evaluation, but is on intermittent oxygen at night. SOCIAL HISTORY: He is a nonsmoker. FAMILY HISTORY: Noncontributory to current presentation. REVIEW OF SYSTEMS: As noted in the HPI. PHYSICAL EXAMINATION: General: Reveals an obese, white male resting comfortably and in no distress. Vital Signs: Blood pressure 138/71, heart rate 83, respiration rate 21, oxygen saturation 96% on 50% face mask. HEENT: Pupils are equal and reactive. Oropharynx is clear. Neck: Supple. Chest: Reveals decreased breath sounds at the left base. Cardiac Examination: Regular rate. Normal S1, normal S2. Abdomen: Obese and soft. Extremities: Reveal trace edema. LABORATORIES: CT scan reveals no evidence of pulmonary emboli, moderate left-sided pleural effusion with compressive atelectasis, tracheomalacia, splenomegaly. White blood count 6.45, hemoglobin 10.3, platelet count 79,000. Chemistry: Sodium 139, potassium 4.1, chloride 94, BUN 13, creatinine 1. Blood cultures are negative to date. He has been afebrile during this hospitalization. IMPRESSION: Complicated, 41-year-old, white male. The patient does have a known and documented history of idiopathic thrombocytopenic purpura which would explain his clotting disorder and prior difficulties with mesenteric vein thrombosis and subsequent postoperative deep vein thrombosis. The patient reports he had a gastrointestinal bleed and stopped his blood thinner several months ago. The patient has a diagnosis of lupus which has not been confirmed and no formal rheumatologic evaluation is available. Patient carries a diagnosis of sleep apnea but does not remember formal sleep apnea evaluation. The patient intermittently has protein S deficiency listed in chart but this has been documented as negative with normal values in this hospital laboratory. The patient intermittently has the diagnosis of lupus anticoagulant listed but with 2 recent negative evaluations. The patient has chronic pain syndrome and reports he received his pain medications from a physician in [place]. He has not seen a physician in 8 months. It seems unlikely that he would have a prescription for pain medicine which lasted this duration. Patient needs to find a physician and establish a relationship or his long-term prognosis will be guarded. The patient has recent fevers but remains afebrile during this hospital stay. He has a small pleural effusion which will need to be followed and may require thoracentesis. RECOMMENDATIONS: 1. Agree with antibiotic regimen as you are doing. 2. Consider thoracentesis if he develops fevers, leukocytosis, or progression of pleural effusion. 3. Oxygen as needed to maintain saturation greater than 90%. 4. Agree with evaluation by Dr. Ann as you are doing. 5. Consider formal evaluation with Dr. Sánchez. 6. Anticoagulation and weight loss were recommended to the patient. 7. Consider formal sleep apnea evaluation as an outpatient if he has not had this performed. cc: James Poe MD
[2016-10-13] MEDS: CELEXA PO SCH (14:16)
[2016-10-13] MEDS: XANAX PO SCH ×2 (14:17→21:20)
--- NOTE | 2016-10-13 17:12 | CONSULTATION ---
DATE OF CONSULTATION: 10/13/2016 HEMATOLOGY/ONCOLOGY CONSULT: REASON FOR CONSULT: This patient has thrombocytopenia and a prior history of clots. HISTORY OF PRESENT ILLNESS: This is a patient whom we have seen in the hospital previously for history of clots. He most recently has been seen in [place] in 2015, by Dr. Salgado, accounts payable bookkeeper. He was seen at [place] for, per the patient, multiple DVTs which we do not have any ultrasound records of. [facility] did show a postop DVT at 1 point, which he was treated for and their notes state that he has an IVC filter in place. He did have a mesenteric clot, it is questionable venous versus arterial. He has had hypercoagulable workup at [facility] per Dr. Salgado, which was negative. We have performed this work up here and it is also negative. Patient has known chronic thrombocytopenia, splenomegaly and suspected ITP. His platelets have apparently been stable. He has not been on any anticoagulant for approximately a year. He states that he was on Xarelto previously and he had a GI bleed while he was on it so he stopped it. He is very noncompliant. He states that over the last day he began having increasing dyspnea with some chest pain. He has some home oxygen that he uses on a p.r.n. basis that he used, it was 7 L nasal cannula, and he still had no improvement with his dyspnea so he came to the ER. A CTA of the chest was performed, which is negative for pulmonary embolism. It did show moderate left pleural effusion with associated compressive atelectasis of the posterior left lower and upper lobes, atelectasis at right base, splenomegaly, narrowing of the trachea in the AP dimension that has not been changed. His platelet count is 79,000, hemoglobin 10.3, WBC 6.45. He denies any clinical bleeding, any swelling in his extremities, new lumps, bumps, or bone pain. He denies any DVT in the past year. ALLERGIES: Sulfa drugs, latex, penicillin, fluconazole, and Zofran. PAST MEDICAL/SURGICAL HISTORY: 1. Mesenteric venous versus arterial thrombosis. 2. Antiphospholipid antibody syndrome. 3. Ischemic colitis status post resection. 4. GI bleed. 5. Chronic pain. 6. Anxiety. 7. Prior empyema. 8. A postop lower extremity DVT. FAMILY/SOCIAL HISTORY: Patient denies alcohol, illicit drug or tobacco use. HOME MEDICATIONS: Oxycodone, omeprazole, Lasix, Celexa, and Xanax. PHYSICAL EXAMINATION: Vital Signs: Stable. HEENT: Head is normocephalic, atraumatic. Pupils equal, round, symmetric. Cardiovascular: S1, S2 audible to auscultation with no heaves, lifts, thrills. Pulmonary: The patient is on a BiPAP. Respirations are unlabored with diminished in bilateral bases. Abdomen: Positive bowel sounds. Soft, nontender. Extremities: There is no edema. No extremity swelling. Skin: No petechiae, no ecchymosis. Neurologic : Alert and oriented x3. DIAGNOSTIC DATA: WBC 6.45, hemoglobin 10.3, platelet count 79,000. CT of the chest is as above, negative for a pulmonary embolism. ASSESSMENT AND PLAN: 1. Respiratory failure. Supportive care per the primary team and Dr. Poe. 2. Thrombocytopenia. Patient has known splenomegaly and he had a CT of the abdomen 08/13/2015 that showed spleen 17 cm in AP dimension and 19 cm in length. There is also probably some idiopathic thrombocytopenic purpura component, nonetheless his platelets are stable at 79,000 and no obvious bleeding. We will monitor for now. 3. Per the patient, multiple deep venous thromboses. There is a documentation of one in [place] that was a postop deep venous thrombosis that has been treated with Xarelto per Dr. Salgado at [facility]. Patient apparently did not continue following with him. He has not followed with us either. He has not been on anticoagulation in approximately a year. The patient is currently on full dose Lovenox. Change this to lovenox 40mg sq. 4. Previous mesenteric clot, question of venous versus arterial. Hypercoagulable workup from Dr. Salgado at [facility] and by us has been negative. 5. Dyspnea with chest pain secondary to #1. Patient's CTA of the chest was negative for pulmonary embolism. Supportive care from primary team and Dr. Poe has been consulted. Dictated by BALDO Cheek for Wilver Ann MD cc: BALDO Cheek MD [facility]
[2016-10-13 18:36] LABS: UR AMPHETAMINES QUAL NONE DETECTED (NONE DETECT); UR BARBITUATES QUAL NONE DETECTED (NONE DETECT); UR BENZODIAZEPIN QUAL PRESUMPTIVE POSITIVE (NONE DETECT); UR CANNABINOIDS QUAL NONE DETECTED (NONE DETECT); UR COCAINE QUAL NONE DETECTED (NONE DETECT); UR METHADONE QUAL NONE DETECTED (NONE DETECT); UR OPIATES QUAL PRESUMPTIVE POSITIVE (NONE DETECT); UR OXYCODONE QUAL PRESUMPTIVE POSITIVE (NONE DETECT); UR PCP QUAL NONE DETECTED (NONE DETECT)
--- NOTE | 2016-10-13 20:46 | PROGRESS NOTE ---
DATE: 10/13/2016 SUBJECTIVE: The patient continues to complain of mild pleuritic chest pain. He states that his shortness of breath is mildly improved. OBJECTIVE: Vital Signs: Temperature 98 degrees, blood pressure 121/58, heart rate 86. Respirations 20, O2 saturations 96% on 4 L nasal cannula. General: This is a middle-aged male, lying in bed, in no acute distress. Head: Normocephalic, atraumatic. Heart: S1, S2. Normal. Regular rate and rhythm. Lungs: Equal entry bilaterally. No crackles. No rales. Abdomen: Positive bowel sounds. Soft, nontender, nondistended. Extremities: No edema. No cyanosis. No calf tenderness. Neurologic: The patient is alert and oriented x3. LABORATORY: White blood cell count 6.4, hemoglobin 10, hematocrit 34, platelets 79,000. Sodium 139, potassium 4.1, chloride 94, CO2 30, BUN 13, creatinine 1, glucose 155. ASSESSMENT AND PLAN: 1. Acute hypoxemic respiratory failure. Most likely secondary to volume overload and the large left-sided pleural effusion. The patient is on Lasix, bronchodilator therapy, IV steroids and supplemental oxygen. Pulmonary is following. 2. Left pleural effusion. Continue to monitor this and see if he improves with diuretic therapy. The patient may require thoracentesis. 3. history of idiopathic thrombocytopenia. Aware. Hematology has been consulted. 4. Vitamin D deficiency. Continue on vitamin D replacement. 5. Anxiety disorder. Continue on Xanax. 6. Lupus. Aware. 7. History of deep vein thrombosis. Bilateral lower extremity venous Dopplers were ordered and completed. The official report is not available. We will continue on full dose Lovenox for now. cc: Zenaida Davey MD
[2016-10-14] MEDS: DILAUDID IV PRN ×6 (03:08→23:27)
[2016-10-14] MEDS: SOLU-MEDROL IV SCH ×3 (03:08→17:35)
[2016-10-14] MEDS: MERREM 1 GM in NS 50 ML IV SCH ×3 (03:12→19:56)
[2016-10-14] MEDS: DUONEB (A & A) INH SCH ×6 (03:20→22:51)
[2016-10-14] MEDS: PRILOSEC PO SCH (05:59)
[2016-10-14] MEDS: LOVENOX SUBQ SCH (06:01)
[2016-10-14 07:10] LABS: EOS# 0.03 X1000 (0.0-0.7); EOS% 0.3 % (0.0-10.0); HEMATOCRIT 33.7 % (42.0-52.0); IMM GRAN# 0.02 X1000 (0.0-0.04); IMM GRAN% 0.2 % (0.0-0.5); LYMPH# 0.34 X1000 (1.2-3.4); LYMPH% 3.1 % (20.5-51.1); MANUAL DIFF NEEDED? YES; MCH 22.8 PG (27-31); MCHC 29.7 g/dL (33-37); MCV 76.8 FL (81-99); MONO# 0.56 X1000 (0.11-0.59); MONO% 5.2 % (1.7-9.3); MPV 9.4 FL (7.4-10.4); NEUT% 91.2 % (42.2-75.2); PLT 104 X1000 (130-400); RBC 4.39 XMIL (4.7-6.1)
[2016-10-14 07:15] LABS: AGAP 14; BUN 21 mg/dL (8-22); CALCIUM 8.9 mg/dL (8.8-10.2); CHLORIDE 93 mmol/L (98-107); COSMO 284; SODIUM 140 mmol/L (136-145); TCO2 33 mmol/L (25-35)
--- NOTE | 2016-10-14 07:53 | Diag Imaging Result Document ---
PROCEDURE NAME: CHEST-2 VIEWS - 10/14/2016 FRONTAL AND LATERAL CHEST, TWO VIEWS: COMPARISON: 10/13/2016. FINDINGS: Poor inspiratory effort. The heart is not enlarged. The vessels are not distended. There are at least small bilateral pleural effusions. There is basilar atelectasis and possibly an underlying infiltrate on the left. Overall the findings are less pronounced than on the prior exam. The vessels are less distended. IMPRESSION: Overall mild interval improvement.
[2016-10-14] MEDS: CELEXA PO SCH (08:12)
[2016-10-14] MEDS: XANAX PO SCH ×2 (08:12→21:24)
[2016-10-14 08:40] LABS: LYMPHS 6 % (21-51); MONO 2 % (1-9)
[2016-10-14] MEDS: LASIX IV SCH ×2 (11:37→17:35)
--- NOTE | 2016-10-14 13:53 | Extremity Venous Study ---
PROCEDURE NAME: Venous U/S Bilateral Legs - 10/13/2016 BILATERAL LOWER EXTREMITY VENOUS ULTRASOUND: FOOD COUNTER WORKER: Karo. INDICATION: Edema and pain in the legs with elevated D-dimer. FINDINGS: All deep and superficial veins were visualized in bilateral lower extremities. All veins are compressible with forward flow and no evidence intraluminal thrombus. Of note, there is at least some left common femoral vein reflux noted with Valsalva. cc: MD Zenaida Gates MD
--- NOTE | 2016-10-14 14:28 | PROGRESS NOTE ---
DATE: 10/14/2016 SUBJECTIVE: The patient is resting comfortably in bed. He states that he feels a lot better as far as his shortness of breath is concerned. OBJECTIVE: Vital Signs: Temperature 98 degrees, blood pressure 129/74, heart rate 94, respirations 19, O2 saturations 93% on 4 L nasal cannula. General: This is a middle-aged male, lying in bed, in no acute distress. Head: Normocephalic atraumatic. Heart: S1, S2. Normal. Regular rate and rhythm. Lungs: Equal air entry bilaterally. No crackles. Abdomen: Positive bowel sounds. Soft, nontender, nondistended. Extremities: No edema. No cyanosis. No calf tenderness. Neurologic: The patient is alert and oriented x3. LABS: White blood cell count 10, hemoglobin 10, hematocrit 33, platelets 104,000. Sodium 140, potassium 4, chloride 93, CO2 33, BUN 21, creatinine 1, glucose 136. ASSESSMENT AND PLAN: 1. Acute hypoxemic respiratory failure. Improved. The patient is now on nasal cannula. Continue on Lasix, bronchodilator therapy, oxygen and IV steroid therapy. 2. Left pleural effusion. Stable. Further recommendations as per the remote broadcast technician. 3. History of ITP. Aware. 4. Vitamin D deficiency. Continue on vitamin D replacement. 5. Anxiety disorder. Continue on Xanax. 6. Chronic pain syndrome. Continue on p.r.n. pain medication. 7. Lupus. Aware. 8. History of a postop lower extremity deep vein thrombosis. The venous Dopplers done during this hospitalization are negative for DVT. 9. Constipation. Will start the patient on scheduled laxative therapy. cc: Zenaida Davey MD
[2016-10-14] MEDS: COLACE PO SCH (21:24)
[2016-10-14] MEDS: MIRALAX PO SCH (21:26)
[2016-10-14] MEDS: DULCOLAX PR SCH (21:27)
[2016-10-15] MEDS: SOLU-MEDROL IV SCH ×3 (01:48→23:56)
[2016-10-15] MEDS: DUONEB (A & A) INH SCH ×6 (03:03→23:50)
[2016-10-15] MEDS: MERREM 1 GM in NS 50 ML IV SCH ×3 (03:25→21:31)
[2016-10-15] MEDS: DILAUDID IV PRN ×3 (03:36→11:22)
[2016-10-15 05:30] LABS: HEMATOCRIT 33.2 % (42.0-52.0); HEMOGLOBIN 9.6 g/dL (14.0-18.0); MCH 22.6 PG (27-31); MCHC 28.9 g/dL (33-37); MCV 78.1 FL (81-99); MPV 8.7 FL (7.4-10.4); RBC 4.25 XMIL (4.7-6.1)
[2016-10-15 05:42] LABS: AGAP 13; BUN 23 mg/dL (8-22); CALCIUM 8.6 mg/dL (8.8-10.2); CHLORIDE 92 mmol/L (98-107); COSMO 285; POTASSIUM 3.7 mmol/L (3.5-5.1); SODIUM 140 mmol/L (136-145); TCO2 35 mmol/L (25-35)
[2016-10-15] MEDS: PRILOSEC PO SCH (06:07)
[2016-10-15] MEDS: XANAX PO SCH ×2 (08:01→21:43)
[2016-10-15] MEDS: CELEXA PO SCH (08:01)
[2016-10-15] MEDS: LOVENOX SUBQ SCH (08:01)
[2016-10-15] MEDS: COLACE PO SCH ×2 (08:03→21:28)
[2016-10-15] MEDS: MIRALAX PO SCH ×3 (08:03→22:47)
--- NOTE | 2016-10-15 08:29 | Diag Imaging Result Document ---
PROCEDURE NAME: CHEST-2 VIEWS - 10/15/2016 FRONTAL AND LATERAL CHEST, TWO VIEWS: COMPARISON: 10/14/2016. FINDINGS: Poor inspiratory effort. No change in the left jugular line. No pneumothorax. The right hemidiaphragm is elevated. There are at least small bilateral pleural effusions. There is basilar atelectasis and there may be an underlying infiltrate on the left. There is a calcified granuloma in the mid right lung. The overall appearance of the chest is quite similar to that of the prior exam. IMPRESSION: No significant interval improvement.
--- NOTE | 2016-10-15 12:14 | PROGRESS NOTE ---
DATE: 10/15/2016 SUBJECTIVE: The patient states that he feels a lot better today. No acute events overnight. OBJECTIVE: Vital Signs: Temperature 97.2 degrees, blood pressure 138/76, heart rate 75, respirations 16, O2 saturation 93% on 4L nasal cannula. General: This is a morbidly obese, middle-aged male, lying in bed in no acute distress. Head: Normocephalic, atraumatic. Heart: S1 and S2 normal. Regular rate and rhythm. Lungs: Clear to auscultation bilaterally. No crackles. No rales. Abdomen: Positive bowel sounds. Soft, nontender, nondistended. Extremities: No edema. No cyanosis. Neurologic: The patient is alert oriented x3. LABORATORIES: White blood cell count 10, hemoglobin 9.6, hematocrit 33, platelets 83,000. Sodium 140, potassium 3.7, chloride 92, CO2 of 35, BUN 23, creatinine 1, glucose 129. ASSESSMENT AND PLAN: 1. Acute hypoxemic respiratory failure. Improved. The patient is now on 4L nasal cannula. Continue on the current therapy. 2. Left pleural effusion. Stable. 3. History of idiopathic thrombocytopenia. Aware. 4. Vitamin D deficiency. Continue on vitamin D replacement. 5. Anxiety disorder. Continue on Xanax. 6. Chronic pain syndrome. Continue on the current pain management regimen. 7. Lupus. Aware. 8. Deep vein thrombosis prophylaxis. Continue on Lovenox. 9. The patient is stable for transfer to the medical floor. We will consult Physical Therapy. cc: Zenaida Davey MD
[2016-10-15] MEDS: OXY IR PO SCH ×3 (12:29→21:30)
[2016-10-15] MEDS: LASIX IV SCH ×2 (12:30→21:30)
[2016-10-15] MEDS: DULCOLAX PR SCH (21:29)
[2016-10-16] MEDS: OXY IR PO SCH ×4 (03:17→21:26)
[2016-10-16] MEDS: MERREM 1 GM in NS 50 ML IV SCH ×3 (03:18→21:25)
[2016-10-16] MEDS: DUONEB (A & A) INH SCH ×4 (03:54→22:54)
[2016-10-16 05:04] LABS: HEMATOCRIT 33.6 % (42.0-52.0); HEMOGLOBIN 9.9 g/dL (14.0-18.0); MCHC 29.5 g/dL (33-37); MPV 8.5 FL (7.4-10.4); RBC 4.31 XMIL (4.7-6.1)
[2016-10-16 05:31] LABS: AGAP 13; BUN 23 mg/dL (8-22); CALCIUM 8.5 mg/dL (8.8-10.2); CHLORIDE 90 mmol/L (98-107); COSMO 281; POTASSIUM 3.5 mmol/L (3.5-5.1); SODIUM 138 mmol/L (136-145); TCO2 35 mmol/L (25-35)
[2016-10-16] MEDS: PRILOSEC PO SCH (06:11)
--- NOTE | 2016-10-16 07:42 | Diag Imaging Result Document ---
PROCEDURE NAME: CHEST-2 VIEWS - 10/16/2016 FRONTAL AND LATERAL CHEST, TWO VIEWS: COMPARISON: 10/15/2016. FINDINGS: Poor inspiratory effort. The heart is not enlarged. The vessels are not distended. No change in the left jugular line. No pneumothorax. There are basilar infiltrates and/or atelectasis with tiny effusions. The overall appearance is similar to that of the prior exam. IMPRESSION: Stable chest.
[2016-10-16] MEDS: COLACE PO SCH ×2 (08:09→21:30)
[2016-10-16] MEDS: XANAX PO SCH ×2 (08:09→21:26)
[2016-10-16] MEDS: MIRALAX PO SCH ×2 (08:09→21:25)
[2016-10-16] MEDS: LOVENOX SUBQ SCH (08:09)
[2016-10-16] MEDS: CELEXA PO SCH (08:09)
[2016-10-16] MEDS: SOLU-MEDROL IV SCH ×3 (11:30→22:59)
[2016-10-16] MEDS: LASIX IV SCH ×2 (12:48→21:26)
--- NOTE | 2016-10-16 15:27 | PROGRESS NOTE ---
DATE: 10/16/2016 SUBJECTIVE: The patient is sitting up in bed. He has no complaints at this time. OBJECTIVE: Vital Signs: Temperature 98 degrees, blood pressure 134/72, heart rate 64, respirations 19, O2 saturations 98% on 2 L nasal cannula. General: This is a middle-aged male sitting up in bed in no acute distress. Head: Normocephalic, atraumatic. Heart: S1, S2. Normal. Regular rate and rhythm. Lungs: Clear to auscultation bilaterally. Abdomen: Positive bowel sounds. Soft, nontender, nondistended. Extremities: No edema. No cyanosis. Neurologic: The patient is alert and oriented x3. LABS: Reviewed. ASSESSMENT AND PLAN: 1. Acute hypoxemic respiratory failure. Improved. 2. Left pleural effusion. Stable. 3. Vitamin D deficiency. Continue on vitamin D replacement. 4. History of idiopathic thrombocytopenia. Aware. 5. Anxiety disorder. Continue on Xanax. 6. Lupus. Aware. 7. Chronic pain syndrome. Continue on scheduled pain medication. 8. Deep vein thrombosis prophylaxis. Continue on Lovenox. 9. Continue with physical therapy. 10. Disposition. Hopefully the patient should be able to go home in the next day or 2. cc: Zenaida Davey MD
[2016-10-16] MEDS: DULCOLAX PR SCH (21:30)
[2016-10-17] MEDS: OXY IR PO SCH ×2 (03:53→09:03)
[2016-10-17] MEDS: DUONEB (A & A) INH SCH ×2 (04:06→08:13)
[2016-10-17] MEDS: MERREM 1 GM in NS 50 ML IV SCH (06:25)
[2016-10-17] MEDS: PRILOSEC PO SCH (06:25)
[2016-10-17 07:17] LABS: HEMATOCRIT 37.2 % (42.0-52.0); HEMOGLOBIN 10.9 g/dL (14.0-18.0); MCH 22.9 PG (27-31); MCHC 29.3 g/dL (33-37); MCV 78.3 FL (81-99); MPV 8.6 FL (7.4-10.4); RBC 4.75 XMIL (4.7-6.1)
[2016-10-17 07:40] LABS: AGAP 15; BUN 21 mg/dL (8-22); CALCIUM 8.2 mg/dL (8.8-10.2); CHLORIDE 92 mmol/L (98-107); COSMO 288; POTASSIUM 3.5 mmol/L (3.5-5.1); SODIUM 142 mmol/L (136-145); TCO2 35 mmol/L (25-35)
[2016-10-17] MEDS: COLACE PO SCH (08:34)
[2016-10-17] MEDS: LOVENOX SUBQ SCH (08:34)
[2016-10-17] MEDS: MIRALAX PO SCH (08:34)
[2016-10-17] MEDS: CELEXA PO SCH (08:34)
[2016-10-17] MEDS: XANAX PO SCH (08:35)
[2016-10-17 10:15] VITALS: BP 150/82
[2016-10-17] MEDS: SOLU-MEDROL IV SCH (11:55)
--- NOTE | 2016-10-17 12:33 | Diag Imaging Result Document ---
PROCEDURE NAME: CHEST-2 VIEWS - 10/17/2016 PA AND LATERAL RADIOGRAPH OF THE CHEST: COMPARISON: 10/16/2016. FINDINGS: There is stable elevation of the right hemidiaphragm. There is stable subsegmental atelectasis and/or infiltrates at the lung bases and stable small effusions. No new consolidations are identified. The central line is stable. Cardiac silhouette is unchanged. IMPRESSION: Stable chest.
--- NOTE | 2016-10-22 09:29 | DISCHARGE SUMMARY ---
ADMISSION DATE: 10/12/2016 DISCHARGE DATE: 10/17/2016 FINAL DISCHARGE DIAGNOSES: 1. Acute hypoxemic respiratory failure. 2. Volume overload. 3. Left pleural effusion. 4. Vitamin D deficiency. 5. History of idiopathic thrombocytopenic purpura. 6. Anxiety disorder. 7. Lupus. 8. Chronic pain syndrome. 9. Morbid obesity. CONSULTATIONS REQUESTED DURING THIS HOSPITAL STAY: Pulmonary consultation with Dr. Poe. HOSPITAL COURSE: Mr. Lee is a 41-year-old male with a history of multiple medical problems, who presented to the ER with respiratory failure. The patient was noted to be hypoxemic on room air. A chest x-ray was done on admission that showed mild cardiomegaly with tiny pleural effusions. This was then followed up with a pulmonary arteriogram due to the patient's elevated D- dimer. This revealed a moderate left pleural effusion with compressive atelectasis, as well as splenomegaly. The patient was admitted to the ICU and started on full-dose Lovenox all due to the concern of a possible blood clot given the patient's past history. Ultimately bilateral venous Dopplers were done which were noted to be negative for DVT. The patient does have a known history of ITP and his platelet count was noted to be low. The patient does also have known splenomegaly. Pulmonary was consulted for further assistance with the patient's respiratory failure. The patient was treated with IV Lasix and that aided with diuresis. The patient did require BiPAP support for at least 48 hours, and that was eventually weaned off. Slowly over the course of the hospital stay, the patient's respiratory status improved. The patient was then transferred to the medical floor and physical therapy was consulted. The patient was able to ambulate without any difficulty. The patient already has home oxygen setup. The patient continued to improve clinically and was cleared for discharge on 10/17/2016. DISCHARGE MEDICATIONS: 1. Vitamin D 2 50,000 units oral every 7 days. 2. Prednisone taper use as directed. 3. Levaquin 750 mg p.o. daily x5 days. 4. DuoNebs 3 mL inhaled every 4 hours p.r.n. for shortness of breath. 5. [place] 10/325, 1 tab oral every 4 hours p.r.n. for pain. 6. Xanax 1 mg p.o. twice a day. 7. Celexa 40 mg p.o. every morning. 8. Oxycodone IR 30 mg p.o. 4 times a day. 9. Omeprazole 40 mg p.o. every morning. 10. Lasix 20 mg p.o. every morning. DISCHARGE DIET: Low sodium diet. ACTIVITY: As tolerated. FOLLOWUP INSTRUCTIONS: The patient will need to follow up with Dr. Poe as scheduled. cc: Zenaida Davey MD
== END 2016-10-17 13:18 | disposition home or self-care (01) ==
LOC: ED 10:38 → ICU 19:15 → 3N 10-16 09:06
PROVIDERS: ATTEND Internal Medicine

== ENCOUNTER 2017-01-12 13:49 | Observation (INO) ==
[2017-01-12 14:49] LABS: URINE CULTURE PL NEEDED? NO
[2017-01-12 15:08] LABS: BILIRUBIN URINE NEGATIVE (NEGATIVE); BLOOD URINE 4+ (NEGATIVE); CLARITY SL. CLOUDY (CLEAR); COLOR YELLOW; GLUCOSE URINE NEGATIVE (NEGATIVE); LEUKOCYTES URINE NEGATIVE (NEGATIVE); NITRITE URINE NEGATIVE (NEGATIVE); PROTEIN URINE NEGATIVE (NEGATIVE); SP GRAVITY URINE 1.005; UROBILINOGEN URINE NORMAL
[2017-01-12 15:11] LABS: URINE CAST NONE SEEN /LPF; URINE CRYSTAL NONE SEEN /HPF; URINE EPITHELIAL CELLS <10 /HPF (<10); URINE RBC 20-40 /HPF (<10); URINE SOURCE CLEAN CATCH
--- NOTE | 2017-01-12 15:12 | PROVIDER DOCUMENTATION ---
HPI-General Adult - General Chief Complaint: Abnormal Lab[s] Stated Complaint: LOW H&H Time Seen by Provider: 01/12/17 15:01 Source: patient Allergies/Adverse Reactions: Patient Allergies Allergy/AdvReac Type Severity Reaction Status Date / Time fluconazole [From Diflucan] Allergy Severe ANAPHYLAXIS Verified 10/12/16 11:06 iodine Allergy Intermediate HIVES Verified 10/12/16 11:06 Penicillins Allergy Intermediate itchy Verified 10/12/16 11:06 Sulfa (Sulfonamide Allergy Unknown Unknown Verified 10/12/16 11:06 Antibiotics) ondansetron HCl * Allergy Unknown Verified 10/12/16 11:06 [From Zofran (as hydrochloride)] rivaroxaban [From Xarelto] Allergy Unknown Verified 12/07/16 14:55 sulfamethoxazole Allergy Unknown Verified 12/07/16 14:55 [From Bactrim] trimethoprim [From Bactrim] Allergy Unknown Verified 12/07/16 14:55 latex AdvReac Intermediate RASH Verified 10/12/16 11:06 Home Medications: Home Medication List Medication Instructions Recorded Confirmed Last Taken Type Alprazolam [Xanax] 1 mg PO BID 03/19/13 10/12/16 10/12/16 History Citalopram [Celexa] 40 mg PO QAM 03/19/13 10/12/16 10/12/16 History Oxycodone I.r. [Oxy Ir] 30 mg PO 4XDAY #0 tablet 04/04/15 10/12/16 10/12/16 Rx Furosemide [Lasix] 20 mg PO QAM 07/12/15 10/12/16 10/12/16 History Omeprazole 40 mg PO QAM 07/12/15 10/12/16 10/12/16 History Albuterol 2.5MG/Ipratrop 0.5MG 3 ml INH RTQ4H PRN #5 neb 10/17/16 Unknown Rx [Duoneb (A & A)] Alprazolam [Alprazolam] 1 mg PO BID 12/07/16 12/07/16 Unknown History Doxycycline [Doxycycline] 100 mg PO BID 12/07/16 12/07/16 Unknown History - History of Present Illness -Gen Adult Nature of Presenting Problems: Pt. is 41 yom that presents with c/o dizziness, fatigue and weakness for the past several days. Pt. reports he is getting home health for some rare infection in his lungs that he is being treated by a [facility] physician. Pt. gets daily blood draws and antibiotics. Pt. states his physician called him today and told him to go to the ED for a blood transfusion because his H and H were to low. Pt. is also on home O2. Location of Pain/Injury: reports: none. denies: head, face, mouth, neck, chest , upper extremity, hand(s), abdomen, back, pelvis, genitalia, lower extremity, feet, upper body, lower body, generalized, other Pain Radiation: reports: no radiation. denies: arm(s), back, buttocks, chest, epigastric, feet, groin, jaw, flank (L), legs (lower), LLQ, LUQ, neck, periumbilical, flank (R), RLQ, RUQ, shoulder(s), scapula, scrotal, sternal notch , suprapubic, legs (upper), urethral, vaginal, other Quality of Pain: reports: none. denies: aching, burning, cramping, dull, fullness, indigestion, pressure, sharp, stabbing, tearing, throbbing, tightness Severity: denies: mild, moderate, severe Onset/Duration: reports: gradual, 3 days ago Timing: reports: still present. denies: improving, gone now, resolved prior to arrival, intermittent, constant, changing over time, getting worse Context/Activities at Onset: reports: none. denies: recent emotional stress, recent physical stress, recent trauma history, possible bad food, cold exposure , out of country travel Modifying Factors: improves with: nothing Associated Symptoms: reports: dizziness, fatigue, malaise, shortness of breath, weakness. denies: denies symptoms, anxiety, arm pain, back/neck pain, chest pain, constipation, cough, diaphoresis, diarrhea, EENT symptoms, fever/chills, genitourinary problems, headaches, heartburn, joint pain, loss of appetite, muscle aches, sinus congestion/drainage, nausea, rash, seizure, sensory/motor loss, pain with inspiration, swelling/mass in abdomen, syncope, vomiting, trouble walking, other Similar Symptoms Previously?: Yes Recently seen or treated by another doctor?: No Review of Systems - Adult - REVIEW OF SYSTEMS - ADULT Constitutional: reports: see HPI, stephanie. denies: chills, fever Eyes: reports: see HPI. denies: discharge, blurred vision, eye pain Ears, Nose, Mouth & Throat: reports: see HPI. denies: ear pain, hearing loss, sinus problem, mouth/dental pain, throat swelling Cardiovascular: reports: see HPI. denies: chest pain, irregular heart rate, palpitations, syncope Respiratory: reports: see HPI, dyspnea on exertion, shortness of breath. denies : cough, hemoptysis, pleurisy, wheezing Gastrointestinal: reports: see HPI. denies: abdominal pain, hematemesis, diarrhea, nausea, vomiting Genitourinary: reports: see HPI. denies: dysuria, discharge, hematuria, incontinence, urgency Musculoskeletal: reports: see HPI. denies: bone pain, joint pain, muscle aches , neck pain Integumentary: reports: see HPI. denies: hives, itching, rash, skin thickening Neurological: reports: see HPI. denies: ataxia, dizziness/vertigo, numbness, seizure, tremors Psychiatric: reports: see HPI. denies: anxiety, depression, emotional problems , insomnia, panic attacks, suicidal thoughts Past History - Adult - PAST MEDICAL HISTORY-ADULT Review of Records: reports: Old Records Reviewed, Nursing Assessment Review, Medications Reviewed, Social history reviewed & non-contributory. Major Childhood Illnesses: reports: denies history Cardiovascular: reports: cardiac disease, blood clots, CHF, HTN Respiratory: reports: COPD Gastrointestinal: reports: other (SBO) Obstetrical/Gynecological: reports: denies history Genitourinary: reports: kidney disease Musculoskeletal: reports: denies history Neurological: reports: denies history Psychiatric: reports: anxiety, depression Endocrine/Immune: reports: lupus, other (protein c deficiency) Other Conditions: reports: denies history - PRIOR SURGERIES/PROCEDURES Surgical/Procedure History: reports: appendectomy, hernia repair - IMMUNIZATION STATUS Childhood Immunizations: See Nurse Assessment Flu Vaccine: See Nurse Assessment - FAMILY HISTORY Family History: reviewed, not pertinent - SOCIAL HISTORY Smoking: non-smoker Physical Exam-General - PHYSICAL EXAM-ADULT Initial Vital Signs Reviewed: Yes - CONSTITUTIONAL General Appearance: alert, moderate distress, obese. negative: thin, anxious, lethargic, slow to respond, obtunded, combative - EYES Eyes: PERRL/EOMI, pink conjunctivae. negative: conjuctival exudate, scleral icterus, subconjunctival hemorrhage - HEAD, EARS, NOSE, MOUTH & THROAT HENMT: normocephalic/atraumatic, moist mucous membranes. negative: angioedema, frontal tenderness, maxillary tenderness - NECK Neck: non-tender, full range of motion, supple, normal inspection. negative: lymphadenopathy, trachial deviation, thyromegaly - RESPIRATORY Respiratory: lungs clear, normal breath sounds. negative: crackles, rales, rhonchi, stridor, wheezing - CARDIOVASCULAR Cardiovascular: normal peripheral pulses, regular rate, rhythm, no edema, no JVD , no murmur. negative: extra beats, friction rub, irregularly irregular - GASTROINTESTINAL (ABDOMEN) Abdominal Exam: normal bowel sounds, non tender, soft. negative: distended, guarding, rigid, rebound, tenderness, hernia, mass - LYMPHATIC Lymphatic: no adenopathy. negative: axilla node tender, cervical node tenderness - MUSCULOSKELETAL Back Exam: normal inspection, no CVA tenderness, no vertebral tenderness. negative: ecchymosis, swelling, vertebral tenderness Extremity: normal range of motion, non-tender, normal gait, normal inspection. negative: deformity, erythema, inflammation, swelling, tenderness Peripheral Pulses: radial (R): 2+, radial (L): 2+ - SKIN Integumentary: pallor. negative: cyanosis, diaphoresis, ecchymosis, erythema, jaundice, mottled, petechiae, purpura, rash, swelling, tenderness - NEUROLOGIC Neurologic: grossly normal, no motor/sensory deficits. negative: aphasia, facial droop, focal weakness, motor weakness, sensory deficit - PSYCHIATRIC Psych/Mental Status: normal mood/affect, normal thought content, normal thought process, oriented x 3. negative: anxious, paranoid, tearful Progress - PLAN OF CARE/RESULTS Progress/Plan/Lab Results: Vital Signs - 8 hr 01/12/17 13:57 Temperature 98 F Pulse Rate 88 Respiratory Rate 20 Blood Pressure 115/58 O2 Sat by Pulse Oximetry 92 L Orders Category Date Time Status Saline Loc NOW Care 01/12/17 15:06 Ordered CBC WITH DIFF [HEME] Stat Lab 01/12/17 14:01 Ordered CMP [COMPREHENSIVE METABOLIC PANEL] [CHEM] Stat Lab 01/12/17 14:01 Ordered [address]IME WITH INR PL [COAG] Stat Lab 01/12/17 15:[address] [COAG] Stat Lab 01/12/17 15:06 Ordered TYPE & SCREEN [BBK] Stat Lab 01/12/17 15:06 Ordered urinalysis [URINALYSIS PL W/POSS RFLX CULT] [URINALYSIS Lab 01/12/17 14:31 Received ] Stat Laboratory Tests 01/12/17 01/12/17 01/12/17 14:31 15:57 15:57 WBC 3.92 L RBC 2.72 L Hgb 6.2 L Hct 21.9 L MCV 80.5 L MCH 22.8 L MCHC 28.3 L RDW Std Deviation 19.7 H Plt Count 44 L MPV 8.8 Immature Gran % (Auto) 0.0 Neut % (Auto) 66.5 Lymph % (Auto) 16.8 L Pershing % (Auto) 13.3 H Eos % (Auto) 3.1 Baso % (Auto) 0.3 Immature Gran # (Auto) 0.00 Neut # (Auto) 2.61 Lymph # (Auto) 0.66 L Pershing # (Auto) 0.52 Eos # (Auto) 0.12 Baso # (Auto) 0.01 PT INR APTT (Factor Assay) Sodium 132 L Potassium 4.1 Chloride 91 L Carbon Dioxide 32 Anion Gap 9 BUN 15 Creatinine 2.5 H Estimated GFR/1.73 m2 29 BUN/Creatinine Ratio 6 Glucose 89 Calculated Osmolality 265 Calcium 8.3 L Total Bilirubin 0.50 AST 18 ALT < 5 L Alkaline Phosphatase 138 H Total Protein 7.9 Albumin 3.0 L Globulin 5.0 Albumin/Globulin Ratio 1.0 Urine Source CLEAN CATCH Urine Color YELLOW Urine Clarity SL. CLOUDY A Urine pH 8.0 Ur Specific Wesley 1.005 Urine Protein NEGATIVE Urine Ketones NEGATIVE Urine Blood 4+ Urine Nitrite NEGATIVE Urine Bilirubin NEGATIVE Urine Urobilinogen NORMAL Urine Microscopic RBC 20-40 A Urine WBC NEGATIVE Ur Epithelial Cells <10 Urine Crystals NONE SEEN Urine Bacteria NEGATIVE Urine Casts NONE SEEN Urine Yeast NONE SEEN Urine Glucose NEGATIVE Blood Type Antibody Screen Crossmatch 01/12/17 01/12/17 01/12/17 15:57 16:00 16:00 WBC RBC Hgb Hct MCV MCH MCHC RDW Std Deviation Plt Count MPV Immature Gran % (Auto) Neut % (Auto) Lymph % (Auto) Pershing % (Auto) Eos % (Auto) Baso % (Auto) Immature Gran # (Auto) Neut # (Auto) Lymph # (Auto) Pershing # (Auto) Eos # (Auto) Baso # (Auto) PT 14.1 INR 1.01 APTT (Factor Assay) 40.1 Sodium Potassium Chloride Carbon Dioxide Anion Gap BUN Creatinine Estimated GFR/1.73 m2 BUN/Creatinine Ratio Glucose Calculated Osmolality Calcium Total Bilirubin AST ALT Alkaline Phosphatase Total Protein Albumin Globulin Albumin/Globulin Ratio Urine Source Urine Color Urine Clarity Urine pH Ur Specific Wesley Urine Protein Urine Ketones Urine Blood Urine Nitrite Urine Bilirubin Urine Urobilinogen Urine Microscopic RBC Urine WBC Ur Epithelial Cells Urine Crystals Urine Bacteria Urine Casts Urine Yeast Urine Glucose Blood Type AB POSITIVE Antibody Screen NEGATIVE Crossmatch See Detail Discussed results and plan of care with patient. Patient agrees with plan and verbalizes understanding. Result Diagrams: 01/12/17 15:57 01/12/17 15:57 - CONSULTS/PCP/HOSPITALIST Notification #1 *Consult/PCP/Hospitalist*: Dr. Talha Mesa at [facility] Time Discussed: 17:23 Reason/Comments: Consult Consult Disposition: other (Keep local but if not better tomorrow would like sent to [facility]) #2 Consult: Dr. Kamara Time Discussed: 17:30 Reason/Comments: Admission Consult Disposition: Admit Departure - Departure Date of Disposition Decision: 01/12/17 Time of Disposition Decision: 17:31 DIAGNOSIS: Anemia Qualifiers: Anemia type: unspecified type Qualified Code(s): D64.9 - Anemia, unspecified Acute renal failure Qualifiers: Acute renal failure type: unspecified Qualified Code(s): N17.9 - Acute kidney failure, unspecified Disposition: ADMITTED INPATIENT 09 Certified Medical Emergency: Emergent Condition: Serious Referrals and Follow-Ups: Caitlyn Oliver MD [Primary Care Provider] - - Critical Care Note This patient required my direct & personal management of CC.: No Attestation - Physician/ PATY Attestation Patient care was provided by Advanced Practice Provider:: Yes Advanced Practice Provider:: Inder Pedersen (The physician is on site and available for consultation but did not have face to face contact with the patient. ) Advanced Practice Provider documentation review:: The Mid-level provider documentation, treatment plan and medical decision making was reviewed by the physician who agrees with all treatment and medical decision making by the MLP.
[2017-01-12 16:22] LABS: BASO% 0.3 % (0.0-0.8); EOS# 0.12 X1000 (0.0-0.7); EOS% 3.1 % (0.0-10.0); HEMATOCRIT 21.9 % (42.0-52.0); HEMOGLOBIN 6.2 g/dL (14.0-18.0); LYMPH# 0.66 X1000 (1.2-3.4); LYMPH% 16.8 % (20.5-51.1); MANUAL DIFF NEEDED? NO; MCH 22.8 PG (27-31); MCHC 28.3 g/dL (33-37); MCV 80.5 FL (81-99); MONO# 0.52 X1000 (0.11-0.59); MONO% 13.3 % (1.7-9.3); MPV 8.8 FL (7.4-10.4); NEUT% 66.5 % (42.2-75.2); PLT 44 X1000 (130-400); RBC 2.72 XMIL (4.7-6.1)
[2017-01-12 16:50] LABS: INR 1.01 (0.86-1.15); PROTIME 14.1 Seconds (12.1-15.5)
[2017-01-12 16:51] LABS: AGAP 9; ALKALINE PHOSPHATASE 138 U/L (32-122); BUN 15 mg/dL (8-22); CALCIUM 8.3 mg/dL (8.8-10.2); CHLORIDE 91 mmol/L (98-107); COSMO 265; GOT 18 U/L (10-34); GPT < 5 U/L (10-44); POTASSIUM 4.1 mmol/L (3.5-5.1); SODIUM 132 mmol/L (136-145); TCO2 32 mmol/L (25-35); TOTAL PROTEIN 7.9 g/dL (6.3-8.3)
[2017-01-12] MEDS ORDERED: NS 1,000 ML IV ONE ×2 (17:20→17:30)
[2017-01-12] MEDS ORDERED: TYLENOL PO PRN (17:35)
--- NOTE | 2017-01-12 19:12 | Diag Imaging Result Doc PS360 ---
EXAM: CHEST-PORTABLE HISTORY: sob TECHNIQUE: Portable AP COMPARISON: 12/07/2016 FINDINGS: Interval placement of a left-sided PICC line. The tip overlies the mid superior vena cava. The right hemidiaphragm is elevated. There has been partial clearing of the infiltrates and atelectasis in the left base. Small left pleural effusion although it is smaller than on the prior exam. IMPRESSION: Overall interval improvement. Electronically signed by Jaya Jordan 01/12/2017 7:10 PM
[2017-01-12] MEDS ORDERED: CIPRO 400 MG/D5W 400 MG/200 ML IVPB IV SCH (22:00)
[2017-01-12] MEDS ORDERED: TRILEPTAL PO SCH (22:00)
[2017-01-12] MEDS ORDERED: XANAX PO SCH (22:15)
[2017-01-12] MEDS: OXY IR PO SCH (22:39)
[2017-01-13] MEDS ORDERED: PRILOSEC PO SCH (07:45)
[2017-01-13 08:05] LABS: MANUAL DIFF NEEDED? NO
[2017-01-13 08:11] LABS: BASO% 0.5 % (0.0-0.8); EOS% 5.2 % (0.0-10.0); HEMATOCRIT 25.7 % (42.0-52.0); HEMOGLOBIN 7.5 g/dL (14.0-18.0); LYMPH# 0.77 X1000 (1.2-3.4); LYMPH% 20.2 % (20.5-51.1); MCH 23.5 PG (27-31); MCHC 29.2 g/dL (33-37); MCV 80.6 FL (81-99); MONO% 10.5 % (1.7-9.3); MPV 9.4 FL (7.4-10.4); NEUT% 63.6 % (42.2-75.2); PLT 49 X1000 (130-400); RBC 3.19 XMIL (4.7-6.1)
[2017-01-13 08:19] LABS: CALCIUM 8.4 mg/dL (8.8-10.2)
[2017-01-13] MEDS: OXY IR PO SCH ×2 (08:23→12:49)
[2017-01-13] MEDS ORDERED: SPIRIVA INH SCH (09:00)
[2017-01-13] MEDS ORDERED: LASIX PO SCH (09:00)
[2017-01-13] MEDS ORDERED: CELEXA PO SCH (09:00)
[2017-01-13] MEDS ORDERED: MYCAMINE 100 MG in NS 100 ML IV SCH (09:00)
[2017-01-13] MEDS ORDERED: DUONEB (A & A) INH SCH (11:30)
[2017-01-13 11:59] VITALS: BP 124/68
--- NOTE | 2017-01-13 16:08 | HISTORY AND PHYSICAL ---
CHIEF COMPLAINT: Dizziness, fatigue, and weakness. HISTORY OF PRESENT ILLNESS: This is a 41-year-old male with a past medical history of severe allergic reaction to azithromycin, pulmonary edema status post left chest tube placement and removal, acute kidney injury probably secondary to antibiotics, MSSA bacteremia, central line infection with yeast, splenomegaly, small intestine ischemia, came to the emergency department with a chief complaint of dizziness, fatigue, weakness for the past few days. He recently was discharged from [facility] secondary to bacteremia, yeast infection, severe allergic reaction, pulmonary edema with left chest tube placement that was removed after more than 20 days. He was sent home with home health and physical therapy. He gets daily blood draws and also antibiotics. This patient states that his physician called him yesterday and told him to go to the emergency department to be get a blood transfusion because his hemoglobin and hematocrit were low. The patient was admitted to this hospital yesterday night and he was transfused with 2 units of PRBCs. Hemoglobin went up from 6.2 to 7.5. He was not complaining any more of dizziness, fatigue, or weakness. I had a really large conversation with his mom, kirby, and with the patient about his whole situation and they state that they only came in because of the blood transfusion, that was the instruction that they got from his doctor, and he wanted to go home. Since this patient was feeling better I decided to send this patient home with strict followup by his primary care doctor. He has a appointment next on February 04 at [facility]. He was instructed to go before if he does not feel good. Blood cultures here have been negative so far. PAST MEDICAL HISTORY: Like I mentioned before, severe allergic reaction to azithromycin, pulmonary edema, left chest tube placement, acute kidney injury likely secondary to antibiotics, MSSA bacteremia, central line placement with yeast infection, splenomegaly, and mesenteric ischemia status post small intestine removal about 10 feet secondary to ischemia. PAST SURGICAL HISTORY: Exploratory laparotomy with 10 feet of small intestine removal secondary to ischemic in 2000. Also left chest tube placement secondary to pulmonary edema. Also he had an open thoracotomy for abscess drainage in the right thoracic area. FAMILY HISTORY: Noncontributory. SOCIAL HISTORY: No alcohol. No drugs. No smoking history. REVIEW OF SYSTEMS: Lower extremities with generalized rash up to the knee which is chronic. The rest of the review of systems were reviewed and all of them negative except as per HPI. PHYSICAL EXAMINATION: VITAL SIGNS: Temperature 98.7 degrees, pulse 76, respiratory rate 18, blood pressure 124/68, oxygen saturation 99 on room air. HEENT: Head normocephalic. No trauma. PERRLA. NECK: Supple. No JVD. No masses. Central trachea. CHEST: Decreased breath sounds globally with scattered expiratory wheezing. ABDOMEN: Soft, nontender, nondistended. Midline scar which is chronic. EXTREMITIES: No edema. No clubbing. No cyanosis. He has a rash that runs from his feet to the knees. NEUROLOGICAL: The patient is alert and oriented x3. No focal neurological deficits. LABORATORY: WBC 3.8, hemoglobin 7.5, hematocrit 25.7, platelets 49,000. Sodium 136, potassium 4, chloride 97, bicarbonate 33, BUN 15, creatinine 2.5, glucose 87, calcium 8.4. ASSESSMENT AND PLAN: 1. Severe anemia. This patient received 2 units of PRBCs and the hemoglobin improved from 6.2 to 7.5. He is not having more symptoms. He denies dizziness or shortness of breath. No chest pain. 2. History of methicillin-sensitive Staphylococcus aureus bacteremia. This patient was on vancomycin and they were told to stop the vancomycin and continue with ciprofloxacin. I also have to stop the vancomycin because of this patient's kidney injury. 3. History of central line yeast infection. Continue with his home medication. 4. Possible asthma. We will continue with breathing treatment and oxygen supplementation. 5. Lower extremity rash. Will monitor. This patient has been told before that he has lupus but nobody can corroborate that information, not even the patient. cc: Rome Russell MD
--- NOTE | 2017-01-14 09:53 | DISCHARGE SUMMARY ---
ADMISSION DATE: 01/12/2017 DISCHARGE DATE: 01/13/2017 DISCHARGE DIAGNOSES: 1. Severe anemia, resolved. 2. History of methicillin-sensitive Staphylococcus aureus bacteremia. 3. History of central line yeast infection. 4. Possible asthma. 5. Lower extremity rash. 6. Acute kidney injury. 7. Splenomegaly. 8. History of small intestine ischemia, status post surgery. HOSPITAL COURSE: A 41-year-old male with a past medical history of severe allergic reaction to azithromycin, pulmonary edema, status post left chest tube placement and removal, acute kidney injury, probably secondary to antibiotics, MSSA bacteremia, central line infection with yeast, splenomegaly, small intestine ischemia, who came to the emergency department with a chief complaint of dizziness, fatigue, weakness for the past few days. He recently was discharged from [facility] secondary to bacteremia, yeast infection, severe allergic reaction, pulmonary edema, and apparently he spent more than 20 days over there. He was sent home, and then he started feeling dizzy. He gets daily blood draws and also antibiotics. The patient states that his physician called him yesterday, and told him to go to the emergency department to get blood transfusion because his hemoglobin and hematocrit were really low. Apparently, he was told that his hemoglobin was below 6. This patient was admitted to the hospital yesterday. We continued with his antibiotics, except vancomycin because of his kidney injury. We found out that this patient had a hemoglobin of 6.2, and after transfusion of 2 units, increased to 7.5. Today, this patient is not complaining of dizziness, fatigue, or weakness. All the information was gathered from his fiance, mom, and by the patient as well. Since he was feeling much better, and he was told to keep the hemoglobin above 6 by his primary doctor, we decided to discharge this patient. He needs to be followed up by his primary doctor. Apparently, he has an appointment with him at [facility] on 02/04/2017, and he was instructed to go to his appointment before if he does not feel good. Blood cultures are negative. Upon discharge, this patient was in a stable medical condition, tolerating p.o., ambulating. No dizziness, no fatigued, no headache. PHYSICAL EXAMINATION: Vital Signs: Temperature 98.7 degrees, pulse 76, respiratory rate 18, blood pressure 124/68, oxygen saturation 99 on room air. HEENT: Head normocephalic. No trauma. PERRLA. Neck: Supple. No JVD. No masses. Central trachea. Chest: Clear to auscultation. No wheezing. No rales. Abdomen: Soft, nontender, nondistended. No hepatosplenomegaly. He has a midline scar, which is chronic. Extremities: No edema. No clubbing. No cyanosis. He has a rash that runs from his feet to the knees, which is chronic. Neurologic: The patient is alert and oriented x3. No focal neurological deficits. LABORATORY DATA: WBC 3.8, hemoglobin 7.5, hematocrit 25.7, platelets 49,000. Sodium 136, potassium 4, chloride 97, bicarbonate 33, BUN 15, creatinine 2.5, glucose 87, calcium 8.4. DISCHARGE MEDICATIONS: Ventolin 5 mg as directed p.r.n., Micafungin sodium 100 mg IV every 24 hours, Spiriva inhaler daily, ciprofloxacin 750 mg p.o. b.i.d., acetaminophen 325 mg p.o. 2 to 4 times a day p.r.n., loratadine 10 mg p.o. daily, Trileptal 150 mg p.o. at bedtime, omeprazole 40 mg p.o. every a.m., DuoNeb 3 mL inhaler every 4 hours p.r.n., Xanax 1 mg p.o. b.i.d., Celexa 20 mg p.o. every a.m., Lasix 40 mg p.o. every a.m., and oxycodone 30 mg 4 times a day. FOLLOWUP: Follow up with his primary care doctor at [facility] on 02/04/2017. TIME SPENT: Time spent discharging this patient was 35 minutes. cc: Rome Russell MD
== END 2017-01-13 15:37 | disposition home health service (06) ==
LOC: P.ED 13:49 → INTOOBSV 18:38 → P.MEDSURG 18:38
PROVIDERS: ATTEND Internal Medicine